=== PATIENT | female | born 1990 | race American Indian/Alaskan Native ===

== ENCOUNTER 2018-06-04 08:34 | Emergency (ER) | payer OTHER ==
[2018-06-04 09:00] VITALS: BP 167/98
--- NOTE | 2018-06-04 09:36 | Emergency Department Report ---
ED Female HPI - General Chief complaint: Vaginal Bleeding Stated complaint: BLEEDING Time Seen by Provider: 06/04/18 09:18 Source: patient Mode of arrival: Ambulatory Limitations: No Limitations - History of Present Illness Initial comments: Patient is 27 years old female 1 para 1. Recent presented to the ER with 3 weeks history of vaginal bleeding patient stated that she is being changing pads almost every hour. She saw her gynecology last week and now she was prescribed control but symptoms are not improving and she was told to come to the ER if her symptoms is getting worse. Patient also complaining of dizziness and generalized weakness. MD Complaint: vaginal bleeding -: Gradual, week(s) - Related Data Previous Rx's Medication Instructions Recorded Last Taken Type Ketorolac [Toradol] 10 mg PO Q6H PRN #20 tablet 06/04/18 Unknown Rx miSOPROStol [Cytotec] 200 mcg PO QID #6 tablet 06/04/18 Unknown Rx Allergies Allergy/AdvReac Type Severity Reaction Status Date / Time medroxyprogesterone Allergy Swelling Verified 06/04/18 08:56 ED Review of Systems ROS: Stated complaint: BLEEDING Other details as noted in HPI Comment: All other systems reviewed and negative Constitutional: denies: chills Respiratory: denies: cough, orthopnea, shortness of breath, SOB with exertion, SOB at rest, wheezing Cardiovascular: denies: chest pain, palpitations Gastrointestinal: denies: abdominal pain, nausea, vomiting, diarrhea, constipation, hematemesis, hematochezia Musculoskeletal: denies: back pain Neurological: denies: headache, weakness ED Past Medical Hx - Past Medical History Previous Medical History?: No - Surgical History Past Surgical History?: Yes Additional Surgical History: ACL repair - Social History Smoking Status: Never Smoker Substance Use Type: Alcohol - Medications Home Medications: Home Medications Medication Instructions Recorded Confirmed Last Taken Type Ketorolac [Toradol] 10 mg PO Q6H PRN #20 tablet 06/04/18 Unknown Rx miSOPROStol [Cytotec] 200 mcg PO QID #6 tablet 06/04/18 Unknown Rx ED Physical Exam - General Limitations: No Limitations General appearance: alert, in no apparent distress - Head Head exam: Present: atraumatic, normocephalic - Eye Eye exam: Present: normal appearance, PERRL - ENT ENT exam: Present: normal exam, normal orophraynx, mucous membranes moist - Neck Neck exam: Present: normal inspection, full ROM. Absent: tenderness, meningismus, lymphadenopathy, thyromegaly - Respiratory Respiratory exam: Present: normal lung sounds bilaterally - Cardiovascular Cardiovascular Exam: Present: regular rate, normal rhythm, normal heart sounds - GI/Abdominal GI/Abdominal exam: Present: soft, normal bowel sounds. Absent: distended, tenderness, guarding, rebound, rigid, mass, bruit, pulsatile mass, hernia - Extremities Exam Extremities exam: Present: normal inspection, full ROM, normal capillary refill. Absent: pedal edema, calf tenderness - Back Exam Back exam: Present: normal inspection, full ROM - Neurological Exam Neurological exam: Present: alert, oriented X3, CN II-XII intact, normal gait, reflexes normal - Skin Skin exam: Present: warm, intact, normal color ED Course Vital Signs 06/04/18 06/04/18 06/04/18 08:56 12:07 12:20 Temperature 97.8 F Pulse Rate 83 Respiratory 18 18 18 Rate Blood Pressure 167/98 O2 Sat by Pulse 97 Oximetry ED Medical Decision Making - Lab Data Result diagrams: 06/04/18 09:43 06/04/18 09:43 - Radiology Data Radiology results: report reviewed Referring Physician: SONIYA CEJA Patient Name: BAL GUTIERREZ Date of : 1990 Sex: Female Report Date: 2018-06-04 Report Status: [place] [address] Ultrasound Report Signed Patient: BAL GUTIERREZ MR#: [id number] : 1990 Acct:[id number] Age/Sex: 27 / F ADM Date: 06/04/18 Loc: ED Attending Dr: Ordering Physician: SONIYA CEJA Date of Service: 06/04/18 Procedure(s): US transvaginal Accession Number(s): [id number] cc: SONIYA CEJA ULTRASOUND PELVIC COMPLETE ULTRASOUND TRANSVAGINAL HISTORY: Pelvic pain, vaginal bleeding. COMPARISON: None. TECHNIQUE: Transabdominal and transvaginal ultrasound with color doppler interrogation. FINDINGS: Uterus: The uterus is retroflexed. The uterus measures 9.3 x 7.5 x 6.9 cm. A large submucosal fibroid is identified in the left lateral wall measuring 6.1 x 4.9 x 4.8 cm. Endometrium: 4 mm. No abnormality. Right ovary: Normal. Left ovary: Normal. No pelvic fluid or mass is identified. Normal color doppler interrogation. IMPRESSION: Large submucosal uterine fibroid as described. Transcribed By: TTR Dictated By: FRAN CANSECO JR, MD Electronically Authenticated By: FRAN CANSECO JR, MD Signed Date/Time: 06/04/181211 DD/ 10 TD/TT: 06/04/181211 - Medical Decision Making I discussed the patient was Dr. Kaitlin Russo, she advised to give the patient Methergine in the ER and he starts patient onset to take and to follow up with her in the next 2-3 days. Critical care attestation.: If time is entered above; I have spent that time in minutes in the direct care of this critically ill patient, excluding procedure time. ED Disposition Clinical Impression: Vaginal bleeding, abnormal, Fibroid, uterine Disposition: DC-01 TO HOME OR SELFCARE Is pt being admited?: No Condition: Stable Instructions: Uterine Fibroids (ED) Prescriptions: Ketorolac [Toradol] 10 mg PO Q6H PRN #20 tablet PRN Reason: Pain miSOPROStol [Cytotec] 200 mcg PO QID #6 tablet Referrals: PRIMARY CARE, [Primary Care Provider] - 3-5 Days
[2018-06-04 09:56] LABS: Basophils % (Auto) 0.7 % (0.0-1.8); Hematocrit 38.8 % (30.3-42.9); Hemoglobin 13.1 gm/dl (10.1-14.3); Lymphocytes # (Auto) 0.9 K/mm3 (1.2-5.4); Lymphocytes % (Auto) 14.6 % (13.4-35.0); Mean Corpuscular HGB Conc 34 % (30-34); Mean Corpuscular Hemoglobin 31 pg (28-32); Mean Corpuscular Volume 92 fl (79-97); Monocytes # (Auto) 0.1 K/mm3 (0.0-0.8); Monocytes % (Auto) 1.9 % (0.0-7.3); Platelet Count 297 K/mm3 (140-440); Red Blood Count 4.23 M/mm3 (3.65-5.03); Red Cell Distribution Width 13.7 % (13.2-15.2)
[2018-06-04 10:11] LABS: INR 0.98 (0.87-1.13)
[2018-06-04 10:12] LABS: Partial Thromboplastin Time 26.6 Sec. (24.2-36.6)
[2018-06-04 10:30] LABS: Alanine Aminotransferase 13 units/L (7-56); Albumin 4.6 g/dL (3.9-5); BUN/Creatinine Ratio 15; Blood Urea Nitrogen 12 mg/dL (7-17); Calcium 9.3 mg/dL (8.4-10.2); Hemolysis Index 12
[2018-06-04] MEDS ORDERED: TORADOL IM ONE (11:47)
--- NOTE | 2018-06-04 12:13 | Ultrasound Report ---
ULTRASOUND PELVIC COMPLETE ULTRASOUND TRANSVAGINAL HISTORY: Pelvic pain, vaginal bleeding. COMPARISON: None. TECHNIQUE: Transabdominal and transvaginal ultrasound with color doppler interrogation. FINDINGS: Uterus: The uterus is retroflexed. The uterus measures 9.3 x 7.5 x 6.9 cm. A large submucosal fibroid is identified in the left lateral wall measuring 6.1 x 4.9 x 4.8 cm. Endometrium: 4 mm. No abnormality. Right ovary: Normal. Left ovary: Normal. No pelvic fluid or mass is identified. Normal color doppler interrogation. IMPRESSION: Large submucosal uterine fibroid as described.
[2018-06-04] MEDS ORDERED: METHERGINE IM ONE (13:36)
== END 2018-06-04 14:20 | disposition home or self-care (01) ==
LOC: ED 08:34
DX: N93.9 Abnormal uterine and vaginal bleeding, unspecified (principal); D25.9 Leiomyoma of uterus, unspecified; R42 Dizziness and giddiness; Z88.8 Allergy status to other drugs, medicaments and biological substances
CPT/HCPCS: 36415; 76830; 76856; 80053; 84703; 85025; 85610; 85730; 86850; 86900; 86901; 96372; 99284; J1885; J2210